=== PATIENT | female | born 1930 | race Caucasian/White ===

== ENCOUNTER → 2016-09-08 | Outpatient (CLI) | payer MEDICARE | LOC: US 15:54 | DX: N17.9 Acute kidney failure, unspecified (principal); N27.1 Small kidney, bilateral ==

== ENCOUNTER → 2020-08-29 | Outpatient (CLI) | payer MEDICARE, OTHER ==
[~2020-08-29] MED LIST: CELEXA20 MG PO; FLONASE 0.05% N16 GM; LASIX20 MG PO; LOPRESSOR100 MG PO; NAPROSYN EC 50500 MG PO; NORVASC 5 MG TAB5 MG PO; PROTONIX40 MG PO; RESTASIS 0.05%1 EACH OD; SINGULAIR10 MG PO; SYNTHROID100 MCG PO; VANCOMYCIN HCL250 MG PO; XANAX0.5 MG PO; XARELTO15 PACK PO; ZOCOR20 MG PO
== END ==
LOC: RAD 07:57
DX: R13.10 Dysphagia, unspecified (principal); Z20.822 Contact with and (suspected) exposure to COVID-19
CPT/HCPCS: 74230; 92611-GN

== ENCOUNTER 2020-11-05 04:10 | Emergency (ER) | payer MEDICARE, OTHER ==
[~2020-11-05 04:10] MED LIST changes: -NAPROSYN EC 50500 MG PO
[2020-11-05] MEDS ORDERED: NAPROSYN EC 50500 MG PO (05:01)
== END 2020-11-05 09:59 | disposition home or self-care (01) ==
LOC: ER1 04:10
DX: M79.602 Pain in left arm (principal); M79.622 Pain in left upper arm; M79.642 Pain in left hand; I10 Essential (primary) hypertension; E03.9 Hypothyroidism, unspecified; K21.9 Gastro-esophageal reflux disease without esophagitis; Z90.49 Acquired absence of other specified parts of digestive tract; W01.0XXA Fall on same level from slipping, tripping and stumbling without subsequent striking against object, initial encounter; Y92.121 Bathroom in nursing home as the place of occurrence of the external cause; Z91.041 Radiographic dye allergy status
CPT/HCPCS: 29125; 70450; 72125; 73030; 73060; 73080; 73090; 73110; 99284